=== PATIENT | male | born 1970 | race Hispanic/Latino ===

== ENCOUNTER 2020-05-03 13:42 | Emergency (ER) | payer SELFPAY ==
[2020-05-03] MEDS ORDERED: LIDOCAINE HCL 1% 20 ML VIAL ONE (13:50)
[2020-05-03] MEDS ORDERED: TETANUS/DIPHTHERIA TOXOID [ADULT] 0.5 ML VIAL IM ONE (14:26)
== END 2020-05-03 16:51 | disposition home or self-care (01) ==
LOC: EDH 13:42
DX: S61.216A Laceration without foreign body of right little finger without damage to nail, initial encounter (principal); W29.8XXA Contact with other powered hand tools and household machinery, initial encounter; Y93.89 Activity, other specified; Y92.89 Other specified places as the place of occurrence of the external cause; Y99.8 Other external cause status
CPT/HCPCS: 12001; 73130; 90471; 90714